=== PATIENT | female | born 1960 | race Caucasian/White ===

== ENCOUNTER 2017-07-06 15:08 | Outpatient (CLI) | payer OTHER | END 2017-07-06 15:09 | disposition home or self-care (01) | LOC: DTY/OP 15:08 | PROVIDERS: ATTEND Surgery | DX: I10 Essential (primary) hypertension (principal) | CPT/HCPCS: 97802 ==

== ENCOUNTER 2017-08-06 14:40 | Outpatient (CLI) | payer OTHER | END 2017-08-06 14:41 | disposition home or self-care (01) | LOC: DTY/OP 14:40 | PROVIDERS: ATTEND Surgery | DX: I10 Essential (primary) hypertension (principal) | CPT/HCPCS: 97802 ==

== ENCOUNTER 2017-09-08 11:19 | Outpatient (CLI) | payer OTHER | END 2017-09-08 11:20 | disposition home or self-care (01) | LOC: DTY/OP 11:19 | PROVIDERS: ATTEND Surgery | DX: I10 Essential (primary) hypertension (principal); Z98.84 Bariatric surgery status | CPT/HCPCS: 97802 ==

== ENCOUNTER 2017-10-02 10:18 | Outpatient (CLI) | payer OTHER | END 2017-10-02 10:19 | disposition home or self-care (01) | LOC: BICMAMMO 10:18 | PROVIDERS: ATTEND Nurse Practitioner | DX: Z12.31 Encounter for screening mammogram for malignant neoplasm of breast (principal) | CPT/HCPCS: 77063; 77067 ==

== ENCOUNTER 2017-12-11 09:35 | Outpatient (CLI) | payer OTHER | END 2017-12-11 09:36 | disposition home or self-care (01) | LOC: DTY/OP 09:35 | PROVIDERS: ATTEND Surgery | DX: E66.01 Morbid (severe) obesity due to excess calories (principal) | CPT/HCPCS: 97802 ==

== ENCOUNTER 2018-02-08 08:00 | Inpatient (IN) | payer OTHER ==
[2018-02-08 08:26] VITALS: BMI 55.9
[2018-02-18] MEDS ORDERED: Levofloxacin 500 mg/D5W 100 ml Premix Bag ONE (06:53)
[2018-02-18] MEDS ORDERED: Heparin 5,000 UNITS/ML VIAL ONE (07:17)
[2018-02-18] MEDS ORDERED: Fentanyl 100 MCG/2 ML VIAL ONE (07:17)
[2018-02-18] MEDS ORDERED: Scopolamine 1.5 mg/72 hour Patch ONE (07:17)
[2018-02-18] MEDS ORDERED: Midazolam HCl 2 mg/2 ml Vial ONE ×2 (07:17)
[2018-02-18] MEDS ORDERED: HYDROmorphone 2 MG/ML VIAL ONE (07:17)
[2018-02-18] MEDS ORDERED: Lidocaine 1% (PF) 30 ML VIAL ONE (07:17)
[2018-02-18] MEDS ORDERED: Zolpidem Tartrate 5 MG TAB PO PRN (07:25)
[2018-02-18] MEDS ORDERED: diphenhydrAMINE 25 MG CAP PO PRN (07:25)
[2018-02-18] MEDS ORDERED: HYDROmorphone 10 mg/100 ml CADD IVPB PRN (07:25)
[2018-02-18] MEDS ORDERED: Promethazine HCl 25 MG/ML VIAL IM PRN ×3 (07:25→09:19)
[2018-02-18] MEDS ORDERED: diphenhydrAMINE 50 MG/ML VIAL IVP PRN ×2 (07:25→09:19)
[2018-02-18] MEDS ORDERED: HYDROmorphone 2 MG/ML VIAL SLOW IVP PRN (07:25)
[2018-02-18] MEDS ORDERED: Ondansetron HCl/PF 4 MG/2 ML Vial IVP PRN ×3 (07:25→09:19)
[2018-02-18] MEDS ORDERED: Naloxone HCl 0.4 mg/ml Vial IV PRN (07:25)
[2018-02-18] MEDS ORDERED: diphenhydrAMINE 50 MG/ML VIAL IM PRN (07:25)
[2018-02-18] MEDS ORDERED: Promethazine HCl 25 MG/ML VIAL SLOW IVP PRN (07:25)
[2018-02-18] MEDS ORDERED: Communication Order-Pharmacy FS SCH (07:30)
[2018-02-18] MEDS ORDERED: Bupivacaine/Epinephrine 0.25% 30 ML VIAL ONE (07:35)
[2018-02-18] MEDS ORDERED: Dextrose 5% in Water 1,000 ML IV PRN (09:19)
[2018-02-18] MEDS ORDERED: hydrALAZINE 20 MG/ML VIAL SLOW IVP PRN (09:19)
[2018-02-18] MEDS ORDERED: Dextrose 50% Abboject 50 ML SYRINGE SLOW IVP PRN (09:19)
[2018-02-18] MEDS: D5 1/2 NS w/20 mEq KCL 1,000 ML IV SCH ×3 (11:00→20:33)
--- NOTE | 2018-02-18 11:09 | OP ---
PREOPERATIVE DIAGNOSIS: Morbid obesity. SURGEON: Zach Jacob M.D. PROCEDURE PERFORMED: Laparoscopic sleeve gastrectomy, esophagogastroscopy. INDICATIONS: A 57-year-old female, morbidly obese, who has attempted multiple weight loss programs w [facility]. FINDINGS: Extensive peritoneal adhesions requiring adhesiolysis prior to the surgery. A 38-Palauan b ougie was used. PROCEDURE IN DETAIL: After informed consent was obtained, the patient was taken to the operating [place] [facility] and given general endotracheal anesthesia. She has undergone a previous transverse laparotomy for a cholecystectomy years ago. Local anesthesia was infiltrated subcutaneously and deep. A transverse incision was performed lateral left abdomen. Veress needle inserted. Drop test performed. Pneumop eritoneum was created to a volume of 2 liters of carbon dioxide. Utilizing a bladeless 12 mm trocar and 0 degree laparoscope, direct visual entry in the abdominal cavity was performed. Pneumoperitoneu m was then created to a pressure of 15 mmHg. Zero degree laparoscope inserted and under direct visio n, a second 12 mm port was placed far left upper subcostal. Through this I began a lysis of adhesion s using the LigaSure. I was able to free enough up to insert another 5 mm port just subxiphoid and t ook down more adhesions freed up enough to then get a 12 mm port just to the left of the midline abou t 8 inches below the xiphoid and then continue the lysis of adhesions to place another 12 mm port on the right side. The patient placed in steep reverse Trendelenburg position. Nathansen liver retract or inserted. Left lobe of liver retracted superiorly. Pylorus was identified and the omentum was ta raghav off the greater curvature 5 cm from the pylorus. Short gastrics divided utilizing the LigaSure a nd the left crura defined with the LigaSure. A 38-Palauan bougie inserted directed into the antrum. The linear 60 mm green load stapler used to divide the antrum to the bougie, gold load along the boug ie, and a series of blues through the angle of His. Intraoperative endoscopy was performed. The vid eo endoscope inserted under direct vision and advanced into the sleeve. Staple line inspected. Ther e was no bleeding. Staple line then tested by inflating the new stomach with pressurized air under w ater. There is no air leak. Stomach decompressed. Scope removed. The remnant stomach removed from the abdomen through the left lateral port site. The fascia closed with 0 Vicryl suture and the GraN ee needle. Trocars and retractors removed. The skin closed with interrupted 4-0 Rapide. Steri-Stri ps applied. Sterile bandage applied. The patient tolerated the procedure well and was transferred t o recovery in good condition. Sponge and needle count verified correct x2.
[2018-02-18] MEDS ORDERED: Acetaminophen 1,000 MG in Premix Bag 1 BAG IVPB SCH (12:00)
[2018-02-18] MEDS: Acetaminophen 1,000 MG in Premix Bag 1 BAG IVPB SCH ×2 (16:04→20:23)
[2018-02-19] MEDS: D5 1/2 NS w/20 mEq KCL 1,000 ML IV SCH ×2 (02:11→04:45)
[2018-02-19] MEDS: Acetaminophen 1,000 MG in Premix Bag 1 BAG IVPB SCH ×3 (02:11→14:52)
[2018-02-19 05:43] LABS: Anion Gap 13 mmol/L (10-20); BUN (Urea Nitrogen) 16 mg/dL (9.8-20.1); Calc. Creatinine Clearance 176 mL/min (70-130); Calcium 8.7 mg/dL (7.8-10.44); Carbon Dioxide 24 mmol/L (22-29); Chloride 100 mmol/L (98-107); Estimated GFR-MDRD 69; Glucose 99 mg/dL (70-105); Potassium 4.5 mmol/L (3.5-5.1); Sodium 132 mmol/L (136-145)
[2018-02-19 06:43] LABS: #Lymphocytes 1.4 thou/uL (1.20-3.40); #Monocytes 0.9 thou/uL (0.11-0.59); #Neutrophils 9.9 thou/uL (1.40-6.50); %Basophils 0.2 % (0.0-1.0); %Eosinophils 0.2 % (0.0-10.0); %Lymphocytes 11.6 % (21.0-51.0); %Monocytes 6.9 % (0.0-10.0); Hemoglobin 12.1 g/dL (12.0-16.0); Mean Corpuscular HGB CONC 33.2 g/dL (32.0-36.0); Mean Corpuscular Hemoglobin 30.2 pg (27.0-31.0); Mean Corpuscular Volume 90.8 fL (78.0-98.0); Mean Platelet Volume 6.7 fL (7.4-10.4); PLT Morphology Comment Appears Adequate; Platelet Count 247 thou/uL (130-400); RBC Distribution Width 13.5 % (11.5-14.5); RBC Morphology Normal; Red Blood Cell (RBC) Count 4.01 mill/uL (4.20-5.40); White Blood Cell (WBC) Count 12.3 thou/uL (4.8-10.8)
[2018-02-19] MEDS ORDERED: Pantoprazole 40 MG VIAL IVP SCH (09:00)
[2018-02-19] MEDS ORDERED: Enoxaparin Sodium 40 MG/0.4 ML SYRINGE SC SCH (09:00)
[2018-02-19] MEDS ORDERED: Hydrocodone-Acetamin 15 ML UDCUP PO PRN (09:19)
[2018-02-19 11:34] VITALS: BP 105/69; TEMP 98.8
--- NOTE | 2018-02-19 15:35 | RAD ---
MODIFIED UPPER GI: 02/19/18 INDICATION: Status post gastric sleeve procedure. FLUOROSCOPIC TIME: 1.3 minutes. TOTAL EXPOSURE: 2048.4 mGy*m2. FINDINGS: 15 mL of gastrografin was administered. There is mild temporary holdup along the proximal aspect of t he gastric sleeve site. There was eventual passage of the contrast from the proximal aspect of the ga stric sleeve across the gastroplasty site and into the duodenum. There was no extraluminal leak. IMPRESSION: Slow transit of contrast across the gastroplasty site without evidence of extraluminal contrast sleev e or complete obstruction. Findings may reflect mild diminished peristalsis for the patient's recent postop state or mild ileus. POS: MARIALUISA
--- NOTE | 2018-02-19 19:26 | DIS ---
DISCHARGE DIAGNOSIS: Morbid obesity. PROCEDURES DURING ADMISSION: Laparoscopic sleeve gastrectomy, intraoperative esophagogastroscopy, po stoperative Gastrografin swallow. HOSPITAL COURSE: The patient was admitted, taken to the operating room where she underwent sleeve ga strectomy. Postoperatively, she has done well. Her x-ray was fine. She was started on liquid. She is tolerating them well. She is discharged home on hydrocodone, Zofran. She is to follow up with vi [facility]yn[facility] in 2 weeks.
== END 2018-02-19 14:00 | disposition home or self-care (01) | DRG 621 ==
LOC: SURG A 02-18 06:02 → SJJU 02-18 10:10
PROVIDERS: ADMIT Surgery; ATTEND Surgery
PROC: 0DB64Z3 Excision of Stomach, Percutaneous Endoscopic Approach, Vertical (ICD-10-PCS; principal; 2018-02-18)
PROC: 0DNW4ZZ Release Peritoneum, Percutaneous Endoscopic Approach (ICD-10-PCS; 2018-02-18)
DX: E66.01 Morbid (severe) obesity due to excess calories (principal); Z68.43 Body mass index [BMI] 50.0-59.9, adult; I10 Essential (primary) hypertension
CPT/HCPCS: 36415; 74220; 80048; 85025; 88307; 88312; 94760; C9113; J0131; J1170; J1644; J1650; J1956; J2001; J2250; J3010

== ENCOUNTER 2020-05-28 11:34 | Outpatient (CLI) | payer OTHER ==
--- NOTE | 2020-05-28 13:24 | MMO ---
Bilateral MAMMO Bilat Screen [facility]. CLINICAL HISTORY: Patient is 60 years old and is seen for screening. The patient has no family history of breast cancer. The patient has no personal history of cancer. VIEWS: The views performed were: bilateral craniocaudal with tomosynthesis and bilateral mediolateral oblique with tomosynthesis. FILMS COMPARED: comparison is made with 10/02/2017 This study has been interpreted with the assistance of computer-aided detection. MAMMOGRAM FINDINGS: There are scattered fibroglandular densities. There are no suspicious masses, suspicious calcifications, or new areas of architectural distortion. IMPRESSION: THERE IS NO MAMMOGRAPHIC EVIDENCE OF MALIGNANCY. A ROUTINE FOLLOW-UP MAMMOGRAM IN 1 YEAR IS RECOMMENDED. THE RESULTS OF THIS EXAM WERE SENT TO THE PATIENT. ACR BI-RADS Category 1 - Negative MAMMOGRAPHY NOTE: 1. A negative mammogram report should not delay a biopsy if a dominant of clinically suspicious mass is present. 2. Approximately 10% to 15% of breast cancers are not detected by mammography. 3. Adenosis and dense breasts may obscure an underlying neoplasm. Reported by: MARK LANGSTON MD Electonically Signed: [id number]
== END 2020-05-28 11:35 | disposition home or self-care (01) ==
LOC: BICMAMMO 11:34
PROVIDERS: ATTEND Nurse Practitioner
DX: Z12.31 Encounter for screening mammogram for malignant neoplasm of breast (principal)
CPT/HCPCS: 77063; 77067

== ENCOUNTER 2023-08-13 08:01 | Inpatient (IN) | payer BC ==
[2023-08-13 08:35] LABS: #Basophils 0.1 thou/uL (0.0-0.2); #Eosinphils 0.4 thou/uL (0.0-0.7); #Monocytes 0.6 thou/uL (0.11-0.59); #Neutrophils 7.3 thou/uL (1.40-6.50); %Basophils 0.5 % (0.0-1.0); %Eosinophils 4.4 % (0.0-10.0); %Lymphocytes 12.7 % (21.0-51.0); %Neutrophils 76.1 % (42.0-75.0); Hemoglobin 14.6 g/dL (12.0-16.0); Mean Corpuscular HGB CONC 30.4 g/dL (32.0-36.0); Mean Corpuscular Hemoglobin 29.6 pg (27.0-31.0); Mean Corpuscular Volume 97.4 fl (78.0-98.0); Mean Platelet Volume 9.6 fL (7.4-10.4); Platelet Count 285 10x3/uL (130-400); RBC Distribution Width 13.9 % (11.5-14.5); Red Blood Cell (RBC) Count 4.93 mill/uL (4.20-5.40); White Blood Cell (WBC) Count 9.6 10x3/uL (4.8-10.8)
[2023-08-13] MEDS ORDERED: CEFAZOLIN 2 GM VIAL ONE (08:35)
[2023-08-13] MEDS ORDERED: Morphine 4 MG/ML VIAL ONE (08:35)
[2023-08-13] MEDS ORDERED: Ondansetron PF 4 MG/2 ML Vial ONE (08:35)
[2023-08-13] MEDS ORDERED: Sodium Chloride 0.9% 100 ML ONE (08:35)
[2023-08-13 08:56] LABS: ALT (SGPT) 22 U/L (8-55); AST (SGOT) 22 U/L (5-34); Alkaline Phosphatase 106 U/L (40-110); Anion Gap 14 mmol/L (10-20); BUN (Urea Nitrogen) 17 mg/dL (9.8-20.1); Calc. Creatinine Clearance 0 mL/min (70-130); Carbon Dioxide 20 mmol/L (23-31); Chloride 110 mmol/L (98-107); Estimated GFR 83; Globulin 3.2 g/dL (2.4-3.5); Glucose 111 mg/dL (80-115); Potassium 4.6 mmol/L (3.5-5.1); Protein, Total 7.2 g/dL (5.8-8.1); Sodium 139 mmol/L (136-145)
[2023-08-13] MEDS ORDERED: Dextrose 5% in Water 1,000 ML IV PRN (09:06)
[2023-08-13] MEDS ORDERED: Dextrose 50% Abboject 50 ML SYRINGE SLOW IVP PRN (09:06)
[2023-08-13] MEDS ORDERED: Acetaminophen 325 MG TAB PO PRN (09:06)
[2023-08-13] MEDS ORDERED: Ondansetron PF 4 MG/2 ML Vial IVP PRN (09:06)
[2023-08-13] MEDS ORDERED: Glucagon 1 MG/ML KIT IM PRN (09:06)
[2023-08-13] MEDS ORDERED: hydrOXYzine 25 MG TAB ONE (11:04)
[2023-08-13] MEDS ORDERED: HYDROcodone/Acetaminophen 5/325 mg Tablet ONE (11:04)
[2023-08-13] MEDS: HYDROcodone/Acetaminophen 5/325 mg Tablet PO PRN (11:21)
[2023-08-13] MEDS: hydrOXYzine Pamoate 25 mg Capsule PO SCH (11:23)
[2023-08-13] MEDS ORDERED: Morphine 2 MG/ML VIAL ONE (11:52)
[2023-08-13] MEDS: Morphine 2 MG/ML VIAL SLOW IVP PRN (11:57)
[2023-08-13 12:20] LABS: Bacteria/HPF None Seen HPF (None Seen); Bilirubin Negative (Negative); Blood, Urine Negative (Negative); CAUTI Indications for Culture Urological Procedure; Clarity Clear (Clear); Glucose, Urine (Dipstick) Normal (Negative); Ketone, Urine Negative (Negative); Leukocyte Negative Leu/uL (Negative); Nitrite Negative (Negative); Protein, Urine (Dipstick) Negative (Neg-Trace); RBC/HPF 0-3 HPF (0-3); Squamous Epithelial 0-3 HPF (0-3); Urobilinogen Normal mg/dL (Less than 2); WBC/HPF 0-3 HPF (0-3); pH, Urine 5.5 (5.0-9.0)
[2023-08-13 12:26] LABS: Urine Culture Reflex Yes Yes
[2023-08-13 12:39] VITALS: BMI 49.5
[2023-08-13] MEDS: Clindamycin/D5W 900 MG in Premix 1 BAG IVPB SCH (13:07)
[2023-08-14] MEDS: Acetaminophen/Codeine 30-300mg Tablet PO PRN (02:52)
[2023-08-14 04:13] LABS: #Eosinphils 0.3 thou/uL (0.0-0.7); #Monocytes 0.7 thou/uL (0.11-0.59); %Basophils 0.3 % (0.0-1.0); %Eosinophils 4.4 % (0.0-10.0); %Lymphocytes 20.1 % (21.0-51.0); Hemoglobin 11.8 g/dL (12.0-16.0); Mean Corpuscular HGB CONC 31.2 g/dL (32.0-36.0); Mean Corpuscular Hemoglobin 29.8 pg (27.0-31.0); Mean Corpuscular Volume 95.5 fl (78.0-98.0); Mean Platelet Volume 9.3 fL (7.4-10.4); Platelet Count 274 10x3/uL (130-400); RBC Distribution Width 14.2 % (11.5-14.5); Red Blood Cell (RBC) Count 3.96 mill/uL (4.20-5.40); White Blood Cell (WBC) Count 6.2 10x3/uL (4.8-10.8)
[2023-08-14 04:20] LABS: Hematocrit 37.8 % (36.0-47.0)
[2023-08-14 04:39] LABS: ALT (SGPT) 91 U/L (8-55); AST (SGOT) 84 U/L (5-34); Albumin 3.6 g/dL (3.4-4.8); Alkaline Phosphatase 115 U/L (40-110); Anion Gap 11 mmol/L (10-20); BUN (Urea Nitrogen) 16 mg/dL (9.8-20.1); Bilirubin, Total 1.1 mg/dL (0.2-1.2); Calc. Creatinine Clearance 152 mL/min (70-130); Calcium 7.9 mg/dL (7.8-10.44); Carbon Dioxide 26 mmol/L (23-31); Chloride 107 mmol/L (98-107); Estimated GFR 79; Globulin 2.6 g/dL (2.4-3.5); Glucose 108 mg/dL (80-115); Potassium 4.5 mmol/L (3.5-5.1); Protein, Total 6.2 g/dL (5.8-8.1); Sodium 139 mmol/L (136-145)
[2023-08-14] MEDS ORDERED: fentaNYL PF 100 MCG/2 ML SYRINGE ONE ×2 (06:35→09:44)
[2023-08-14] MEDS ORDERED: PROPOFOL 20 ML ONE (06:36)
[2023-08-14] MEDS ORDERED: Ondansetron PF 4 MG/2 ML Vial ONE (06:36)
[2023-08-14] MEDS ORDERED: Lidocaine 1% PF 5 ML VIAL ONE (06:36)
[2023-08-14] MEDS ORDERED: Midazolam HCl 2 mg/2 ml Vial ONE (06:36)
[2023-08-14] MEDS ORDERED: Dexamethasone 20 MG/5 ML VIAL ONE (06:36)
[2023-08-14] MEDS ORDERED: Meperidine HCl/PF 25 MG/ML VIAL SLOW IVP PRN ×2 (06:50)
[2023-08-14] MEDS ORDERED: Ondansetron HCl/PF 4 MG/2 ML Vial IVP PRN (06:50)
[2023-08-14] MEDS ORDERED: HYDROmorphone 2 MG/ML VIAL SLOW IVP PRN (06:50)
[2023-08-14] MEDS ORDERED: Promethazine HCl 25 MG/ML VIAL IM PRN (06:50)
[2023-08-14] MEDS ORDERED: Lidocaine 2% 6 ML (Jelly) SYR ONE (07:31)
[2023-08-14] MEDS: Polyethylene Glycol 3350 17 GM Packet PO SCH (12:39)
[2023-08-14] MEDS: Clindamycin/D5W 900 MG in Premix 1 BAG IVPB SCH (14:25)
[2023-08-14] MEDS: Ondansetron ODT 4 MG TAB PO PRN (14:54)
[2023-08-14] MEDS: Enoxaparin 40 MG (0.4 mL) SYRINGE SC SCH (20:03)
[2023-08-14] MEDS: Docusate 100 MG CAP PO SCH (20:03)
[2023-08-14] MEDS: Senokot 8.6 MG TAB PO SCH (20:03)
[2023-08-15 05:28] LABS: #Monocytes 1.2 thou/uL (0.11-0.59); #Neutrophils 8.8 thou/uL (1.40-6.50); %Basophils 0.2 % (0.0-1.0); %Lymphocytes 12.4 % (21.0-51.0); %Monocytes 10.5 % (0.0-10.0); %Neutrophils 76.6 % (42.0-75.0); Hematocrit 33.5 % (36.0-47.0); Hemoglobin 10.7 g/dL (12.0-16.0); Mean Corpuscular HGB CONC 31.9 g/dL (32.0-36.0); Mean Corpuscular Hemoglobin 29.9 pg (27.0-31.0); Mean Corpuscular Volume 93.6 fl (78.0-98.0); Mean Platelet Volume 9.8 fL (7.4-10.4); Platelet Count 239 10x3/uL (130-400); RBC Distribution Width 13.9 % (11.5-14.5); Red Blood Cell (RBC) Count 3.58 mill/uL (4.20-5.40); White Blood Cell (WBC) Count 11.5 10x3/uL (4.8-10.8)
[2023-08-15 05:55] LABS: Anion Gap 9 mmol/L (10-20); BUN (Urea Nitrogen) 14 mg/dL (9.8-20.1); Calc. Creatinine Clearance 158 mL/min (70-130); Calcium 8.6 mg/dL (7.8-10.44); Carbon Dioxide 28 mmol/L (23-31); Chloride 104 mmol/L (98-107); Estimated GFR 83; Glucose 113 mg/dL (80-115); Potassium 4.4 mmol/L (3.5-5.1); Sodium 137 mmol/L (136-145)
[2023-08-15] MEDS: Polyethylene Glycol 3350 17 GM Packet PO SCH (08:18)
[2023-08-15] MEDS: HYDROcodone/Acetaminophen 5/325 mg Tablet PO PRN (14:32)
[2023-08-16 09:11] LABS: #Eosinphils 0.3 thou/uL (0.0-0.7); #Monocytes 0.6 thou/uL (0.11-0.59); #Neutrophils 5.4 thou/uL (1.40-6.50); %Basophils 0.5 % (0.0-1.0); %Eosinophils 3.7 % (0.0-10.0); %Lymphocytes 23.8 % (21.0-51.0); %Monocytes 6.8 % (0.0-10.0); %Neutrophils 64.7 % (42.0-75.0); Hematocrit 32.6 % (36.0-47.0); Hemoglobin 10.5 g/dL (12.0-16.0); Mean Corpuscular HGB CONC 32.2 g/dL (32.0-36.0); Mean Corpuscular Hemoglobin 30.4 pg (27.0-31.0); Mean Corpuscular Volume 94.5 fl (78.0-98.0); Mean Platelet Volume 9.6 fL (7.4-10.4); Platelet Count 225 10x3/uL (130-400); RBC Distribution Width 14.2 % (11.5-14.5); Red Blood Cell (RBC) Count 3.45 mill/uL (4.20-5.40); White Blood Cell (WBC) Count 8.4 10x3/uL (4.8-10.8)
[2023-08-18] MEDS ORDERED: Cyclobenzaprine 10 MG TAB PO PRN (14:02)
[2023-08-18] MEDS: Acetaminophen/Codeine 30-300mg Tablet PO SCH (16:12)
[2023-08-18] MEDS: Acetaminophen 325 MG TAB PO SCH (16:13)
[2023-08-18] MEDS: Ketorolac Tromethamine 30 MG (1 mL) VIAL IVP SCH ×2 (16:13→21:20)
[2023-08-19 11:48] VITALS: BP 139/84; TEMP 97.6
== END 2023-08-19 13:30 | DRG 481 ==
LOC: ERS 08:01 → ERHOLD 09:14 → SURG A 12:16
PROVIDERS: ADMIT Surgery; ATTEND Surgery
PROC: 0QSC04Z Reposition Left Lower Femur with Internal Fixation Device, Open Approach (ICD-10-PCS; principal; 2023-08-14)
DX: S72.452B Displaced supracondylar fracture without intracondylar extension of lower end of left femur, initial encounter for open fracture type I or II (principal); Z68.42 Body mass index [BMI] 45.0-49.9, adult; I10 Essential (primary) hypertension; E78.00 Pure hypercholesterolemia, unspecified; E66.01 Morbid (severe) obesity due to excess calories; D64.9 Anemia, unspecified; F41.9 Anxiety disorder, unspecified; W19.XXXA Unspecified fall, initial encounter; Z90.49 Acquired absence of other specified parts of digestive tract; Z88.8 Allergy status to other drugs, medicaments and biological substances; Z98.890 Other specified postprocedural states; Z88.0 Allergy status to penicillin; Z88.2 Allergy status to sulfonamides; Z79.82 Long term (current) use of aspirin; Z79.899 Other long term (current) drug therapy; Y92.009 Unspecified place in unspecified non-institutional (private) residence as the place of occurrence of the external cause
CPT/HCPCS: 36415; 36416; 51702; 71045; 80048; 80053; 81001; 85025; 87086; 93005; 96365; 96366; 96375; C1713; G0390; J1100; J1650; J1885; J2250; J2270; J2272; J2405; J2704; J3490; Q0162; Q0177

== ENCOUNTER 2025-01-20 14:45 | Outpatient (CLI) | payer BC ==
[2025-01-20 15:30] LABS: #Basophils 0.04 10x3/uL (0.0-0.2); #Eosinophils 0.17 10x3/uL (0.0-0.7); #Monocytes 0.55 10x3/uL (0.11-0.59); #Neutrophils 4.70 10x3/uL (1.40-6.50); %Basophils 0.6 % (0.0-1.0); %Eosinophils 2.5 % (0.0-10.0); %Lymphocytes 19.6 % (21.0-51.0); %Monocytes 8.1 % (0.0-10.0); %Neutrophils 68.9 % (42.0-75.0); Hematocrit 39.7 % (36.0-47.0); Hemoglobin 12.7 g/dL (12.0-16.0); Mean Corpuscular Hemoglobin 29.5 pg (27.0-31.0); Mean Corpuscular Volume 92.3 fL (78.0-98.0); Platelet Count 263 10x3/uL (130-400); Red Blood Cell (RBC) Count 4.30 mill/uL (4.20-5.40); White Blood Cell (WBC) Count 6.82 10x3/uL (4.8-10.8)
[2025-01-20 15:51] LABS: ALT (SGPT) 23 U/L (Less than 34); AST (SGOT) 22 U/L (11-34); Albumin 3.6 g/dL (3.1-4.5); Alkaline Phosphatase 113 U/L (40-110); Anion Gap 15 mmol/L (10-20); BUN (Urea Nitrogen) 10 mg/dL (9.8-20.1); Bilirubin, Direct 0.2 mg/dL (0.1-0.3); Bilirubin, Total 0.6 mg/dL (0.3-1.2); Calc. Creatinine Clearance 0 mL/min (70-130); Calcium 8.8 mg/dL (7.8-10.44); Carbon Dioxide 22 mmol/L (23-31); Chloride 107 mmol/L (98-107); Globulin 3.5 g/dL (2.4-3.5); Glucose 83 mg/dL (80-115); Potassium 3.6 mmol/L (3.5-5.1); Sodium 140 mmol/L (136-145)
[2025-01-20 15:52] LABS: Cardiac Risk 3.9 (Less than 4.5); Cholesterol 141.0 mg/dl (< 200 Desired); HDL Cholesterol 36.0 mg/dL (>60 Neg Risk); LDL Cholesterol, Calculated 87.0 mg/dL; Triglycerides 91.0 mg/dL (Less than 150)
== END 2025-01-20 14:46 | disposition home or self-care (01) ==
LOC: LABBT 14:45
PROVIDERS: ATTEND Internal Medicine Cardiovascular Disease
DX: Z01.812 Encounter for preprocedural laboratory examination (principal); R94.39 Abnormal result of other cardiovascular function study
CPT/HCPCS: 80053; 80061; 80076; 85025